=== PATIENT | male | born 1980 | race Caucasian/White ===

== ENCOUNTER 2018-04-20 06:24 | Emergency (ER) | payer BC ==
[~2018-04-20] VITALS: Ht 1828.8 cm; Wt 113.4 kg
[~2018-04-20 06:24] MED LIST: AZIT250T13 PO; DIOVAN PO
--- NOTE | 2018-04-20 06:41 | NUR ---
DR. MOLINA AT BEDSIDE FOR MSE.
[2018-04-20] MEDS ORDERED: FLUORESCEIN SODIUM 1 MG STRIP OP ONE (06:45)
[2018-04-20] MEDS ORDERED: FLUORESCEIN SODIUM 1 MG STRIP ONE (06:48)
--- NOTE | 2018-04-20 06:53 | NUR ---
Patient discharged to home in stable conditon. Written and verbal after care instructions given. Patient verbalizes understanding of instructions. PATIENT LEFT WITH STABLE GAIT.
[2018-04-20 06:54] VITALS: BP 138/84
== END 2018-04-20 06:57 | disposition home or self-care (01) ==
LOC: ER 06:28
DX: Z00.00 Encounter for general adult medical examination without abnormal findings (principal); H57.13 Ocular pain, bilateral; I10 Essential (primary) hypertension; Z79.2 Long term (current) use of antibiotics; Z79.899 Other long term (current) drug therapy
CPT/HCPCS: A4663; J7030

== ENCOUNTER 2022-05-19 08:13 | Inpatient (IN) | payer BC, OTHER ==
[~2022-05-19] VITALS: Ht 185.4 cm; Wt 115.7 kg
[2022-05-19] MEDS ORDERED: FAMOTIDINE. 20 MG/2 ML VIAL IV ONE ×2 (08:30→08:39)
[2022-05-19] MEDS ORDERED: FAMOTIDINE 20 MG TABLET ONE (08:38)
[2022-05-19 08:42] LABS: HEMATOCRIT 43.2 % (36.7-47.1); MEAN CORPUSCULAR HEMOGLOBIN 26.9 uug (23.8-33.4); MEAN CORPUSCULAR VOLUME 79.9 fL (73.0-96.2); PLATELET COUNT (AUTO) 337 K/uL (152-348)
--- NOTE | 2022-05-19 08:48 | NUR ---
PT IS IN ROOM #3. DR YOUNG EVALUATED THE PT.
[2022-05-19 08:55] LABS: CARBON DIOXIDE 24 mmol/L (21-32); CHLORIDE 105 mmol/L (98-107); GLUCOSE 114 mg/dL (74-106); UREA NITROGEN, BLOOD 17 mg/dL (7-18)
[2022-05-19] MEDS ORDERED: LOSA25TA27 PO (08:55)
[2022-05-19] MEDS ORDERED: ASPIRIN 325 MG TABLET PO ONE (11:15)
[2022-05-19] MEDS ORDERED: ASPIRIN 325 MG TABLET ONE (11:25)
[2022-05-19] MEDS ORDERED: LIDOCAINE VISCUS 2% 15 ML UDC ONE (16:13)
[2022-05-19] MEDS ORDERED: MAG HYDROX/AL HYDROX/SIMETH 30 ML LIQUID UDC ONE (16:13)
[2022-05-19] MEDS ORDERED: LIDOCAINE VISCUS 2% 15 ML UDC MM ONE (16:15)
[2022-05-19] MEDS ORDERED: MAG HYDROX/AL HYDROX/SIMETH 30 ML LIQUID UDC PO ONE (16:15)
--- NOTE | 2022-05-19 16:50 | NUR ---
PT WAS TRANSFERED TO TELEMETRY ROOM #330. REPORT WAS GIVEN TO [facility].
--- NOTE | 2022-05-19 16:50 | NUR ---
received from ER per angi, awake alert and oriented x 4, oriented to call and bed buttons, verbalized understanding, tele applied and SR 80's, saline lock noted on right antecubital- no swelling/redness noted, denies of dizziness, initial assessment done, explained plan of care-verbalized understanding, safety measures initiated, call light within reach
[2022-05-19 16:57] VITALS: BP 131/79
[2022-05-19] MEDS ORDERED: ACETAMINOPHEN 325 MG TABLET PO PRN (17:30)
[2022-05-19] MEDS ORDERED: TEMAZEPAM 15 MG CAPSULE PO PRN (17:30)
[2022-05-19] MEDS ORDERED: HYDROCODONE/APAP 5-325MG TABLET PO PRN (17:30)
[2022-05-19] MEDS ORDERED: ONDANSETRON 4 MG/2 ML VIAL IV PRN (17:30)
--- NOTE | 2022-05-19 18:50 | NUR ---
resting in b ed, no distress noted, remains on room air, tele SR 80'd, all needs attended and met, call light within reach
[2022-05-19 20:23] VITALS: BP 120/72
--- NOTE | 2022-05-19 20:40 | NUR ---
Patient alert oriented, no sob no chest pain, tele monitor sinus rhythm, no complain of pain, cont to monitor,
[2022-05-19] MEDS ORDERED: IV 1/2NS 1000 ML 500 ML IV PRN (21:00)
[2022-05-20] VITALS: BP 119/74
[2022-05-20 04:00] VITALS: BP 123/74
--- NOTE | 2022-05-20 06:46 | NUR ---
Patient alert oriented, no sob no chest pain, no complain of pain. no abdominal pain, tele monitor sinus rhythm, cont to monitor.
[2022-05-20 07:00] LABS: BILIRUBIN,TOTAL 0.5 mg/dL (0.2-1.0); HEMATOCRIT 42.5 % (36.7-47.1); MAGNESIUM 2.3 mg/dL (1.8-2.4); MEAN CORPUSCULAR HEMOGLOBIN 27.3 uug (23.8-33.4); MEAN CORPUSCULAR VOLUME 80.4 fL (73.0-96.2); PLATELET COUNT (AUTO) 312 K/uL (152-348); POTASSIUM 3.9 mmol/L (3.5-5.1); TOTAL PROTEIN, SERUM 6.8 g/dL (6.4-8.2)
[2022-05-20] MEDS ORDERED: PANTOPRAZOLE SODIUM 40 MG TABLET.DR PO SCH (07:00)
[2022-05-20 07:29] LABS: THYROID STIMULATING HORMONE 1.364 mIU/mL (0.358-3.740)
[2022-05-20 09:00] VITALS: BP 150/93
[2022-05-20] MEDS ORDERED: ASPIRIN EC 81 MG TABLET.DR PO SCH (09:00)
[2022-05-20] MEDS ORDERED: LOSARTAN POTASSIUM 25 MG TABLET PO SCH (09:00)
--- NOTE | 2022-05-20 09:00 | NUR ---
Pt is a/o x 4, no complaint of chest pain at this time. Comfort measures provided, call light within reach. Plan is to do CTA and echocardiogram. No signs of acute distress, will continue to monitor.
[2022-05-20] MEDS ORDERED: OMEP20TA20 PO (11:16)
[2022-05-20] MEDS: SUCRALFATE 1 G TABLET PO SCH ×2 (11:54→16:13)
[2022-05-20 12:00] VITALS: BP_SYST 121; BP_SYST 150; BP_DIAS 70; BP_DIAS 93
--- NOTE | 2022-05-20 13:22 | NUR ---
Pt transferred to [facility] for CTA. Consent signed.
[2022-05-20] MEDS ORDERED: OLME40TA18 PO (14:06)
[2022-05-20] MEDS ORDERED: AMYL1CAP63 PO (14:07)
[2022-05-20 16:00] VITALS: BP 102/66
[2022-05-20] MEDS ORDERED: LIPASE/PROTEASE/AMYLASE 4200 UNITS CAPSULE.DR PO SCH (17:00)
[2022-05-20] MEDS ORDERED: ATOR10TA PO (17:39)
[2022-05-20] MEDS ORDERED: SUCR1TAB31 PO (17:39)
[2022-05-20] MEDS ORDERED: HYDR-894 PO (17:42)
--- NOTE | 2022-05-20 18:34 | NUR ---
Pt is a/o x 4, ambulatory. Pt being discharged home, all discharge education given to pt . all medication instructions provided, IV and ID band removed. Pt refused to be wheeled down, steady gait noted. No complaint of dizziness or weakness, no complaint of chest pain at this time.
[2022-05-20] MEDS ORDERED: ATORVASTATIN 10 MG TABLET PO SCH (21:00)
== END 2022-05-20 18:30 | disposition home or self-care (01) | DRG 392 ==
LOC: ER 08:14 → TELE3 15:57
PROVIDERS: ADMIT Internal Medicine; ATTEND Internal Medicine
DX: K21.00 Gastro-esophageal reflux disease with esophagitis, without bleeding (principal); K44.9 Diaphragmatic hernia without obstruction or gangrene; R55 Syncope and collapse; I10 Essential (primary) hypertension; F17.211 Nicotine dependence, cigarettes, in remission; E66.01 Morbid (severe) obesity due to excess calories; Z68.33 Body mass index [BMI] 33.0-33.9, adult; Z20.822 Contact with and (suspected) exposure to COVID-19; G89.29 Other chronic pain; F41.9 Anxiety disorder, unspecified; Z56.3 Stressful work schedule
CPT/HCPCS: 36415; 71045; 83735; 84100; 84443; 84484; 85025; 93005; 93307; A4663; G0378; J3490; J7040